=== PATIENT | female | born 1950 ===

== ENCOUNTER → 2018-06-03 | Day surgery (SDC) | payer OTHER | END | disposition home or self-care (01) | LOC: ADM 05-26 13:30 → AMB-ENDOS 06:40 | DX: K57.30 Diverticulosis of large intestine without perforation or abscess without bleeding (principal); K64.2 Third degree hemorrhoids; Z12.11 Encounter for screening for malignant neoplasm of colon ==

== ENCOUNTER → 2024-11-08 | Emergency (ER) | payer OTHER ==
[~2024-11-08] VITALS: Ht 165.1 cm; Wt 64.0 kg
[~2024-11-08] MED LIST: COZAAR25 MG PO; FARXIGA5 MG PO; NEURONTIN300 MG PO
[2024-11-08 11:40] LABS: HEMATOCRIT 45.4 % (36.0-45.00); HEMOGLOBIN 15.2 g/dL (12.0-15.00); MEAN CELL VOLUME 90.8 fL (80.00-100.00); MEAN CORPUSCULAR HEMOGLOBIN 30.4 pg (27.00-32.0); MEAN CORPUSCULAR HGB CONC 33.5 g/dl (32.0-36.0); PLATELET COUNT 325 K/uL (150-450); RED BLOOD COUNT 4.99 M/uL (4.00-6.00); RED CELL DISTRIBUTION WIDTH 13.6 % (11.5-14.5); URINE APPEARANCE Clear; URINE BILIRRUBIN Negative (NEGATIVE); URINE BLOOD Negative; URINE COLOR Yellow; URINE KETONE 15 (NEGATIVE); URINE LEUKOCYTE Negative; URINE NITRATE Negative; URINE PROTEIN Negative (NEGATIVE); URINE UROBILINOGEN 0.2 E.U./dl
[2024-11-08 11:43] LABS: URINE BACTERIA 8.5 uL (0.0-1933); URINE EPITHELIAL CELLS 9.8 uL (0.0-38.8); URINE WBC 15.5 uL (0.0-23.2)
[2024-11-08 12:18] LABS: URINE CAST 0.88 uL (0.0-1.40); URINE GLUCOSE 500 MG/DL (NEGATIVE); URINE RBC 1.3 uL (0.0-20.8)
[2024-11-08 12:28] LABS: CALCIUM 9.7 mg/dL (8.5-10.1); CREATININE SERUM 0.83 mg/dL (0.55-1.02); GFR 67.02; POTASSIUM 5.53 mEq/L (3.5-5.1)
== END | disposition home or self-care (01) ==
LOC: ER
PROVIDERS: General Practice
DX: R10.9 Unspecified abdominal pain (principal); N39.9 Disorder of urinary system, unspecified; E11.9 Type 2 diabetes mellitus without complications; Z88.5 Allergy status to narcotic agent

== ENCOUNTER 2024-11-11 10:23 | Inpatient (IN) | payer OTHER ==
[~2024-11-11] VITALS: Ht 152.4 cm; Wt 64.0 kg
--- NOTE | 2024-11-11 10:38 | NUR ---
PACIENTE ALERTA Y ORIENTADO X3.PACIENTE REFIERE QUE DESDE HACE MK SEMANA A TENIDO DOLOR DE DIVERTIGULITIS Y QUE EL DR. CHAO LE NOTIFICO QUE VINIERA PARA QUE LO LLAMARAN.S/V ESTABLE AL MOMENTO.PACIENTE EN ESPERA DE EVALUACION MEDICA.
[2024-11-11] MEDS ORDERED: MORPHINE SULFATE 2 MG/ML CARTRIDGE IV ONE (13:00)
[2024-11-11] MEDS ORDERED: 0.9 % SODIUM CHLORIDE 500 ML IV SCH (13:15)
[2024-11-11 13:43] LABS: HEMATOCRIT 44.4 % (36.0-45.00); HEMOGLOBIN 15.1 g/dL (12.0-15.00); MEAN CELL VOLUME 90.1 fL (80.00-100.00); MEAN CORPUSCULAR HEMOGLOBIN 30.6 pg (27.00-32.0); PLATELET COUNT 300 K/uL (150-450); RED BLOOD COUNT 4.93 M/uL (4.00-6.00); RED CELL DISTRIBUTION WIDTH 13.6 % (11.5-14.5)
--- NOTE | 2024-11-11 13:47 | NUR ---
SE EDUCA PACIENTE SOBRE EL [place] MEDICO Y ESTA REFIERE ENTENDER. PACIENTE CANALIZA Y SE ADMINISTRA MEDICAMENTOS JOSE ORDEN MEDICA. SE RINA MUESTRAS DE LABORATORIOS Y SE ENVIAN. SE ENTREGA ENVASE DE U/A. PENDIENTE A CT SCAN
[2024-11-11 13:59] LABS: CALCIUM 10.1 mg/dL (8.5-10.1); CREATININE SERUM 0.87 mg/dL (0.55-1.02); GFR 63.47; POTASSIUM 4.8 mEq/L (3.5-5.1)
[2024-11-11 14:35] LABS: URINE APPEARANCE Clear; URINE BILIRRUBIN Negative (NEGATIVE); URINE BLOOD Negative; URINE COLOR Yellow; URINE LEUKOCYTE Negative; URINE NITRATE Negative; URINE PROTEIN Negative (NEGATIVE); URINE UROBILINOGEN 0.2 E.U./dl
[2024-11-11 14:38] LABS: URINE BACTERIA 12.2 uL (0.0-1933); URINE EPITHELIAL CELLS 7.4 uL (0.0-38.8); URINE WBC 9.1 uL (0.0-23.2)
[2024-11-11 15:00] LABS: URINE GLUCOSE >=1000 MG/DL (NEGATIVE); URINE KETONE 40 (NEGATIVE)
[2024-11-11] MEDS ORDERED: PIPERACILLIN/TAZOBACTAM SODIUM 3.375 GM in 0.9 % SODIUM CHLORIDE 100 ML IV SCH (19:25)
[2024-11-11] MEDS ORDERED: PANTOPRAZOLE SODIUM 40 MG in 0.9 % SODIUM CHLORIDE 8 ML IV PUSH SCH (19:30)
[2024-11-11] MEDS ORDERED: 0.9 % SODIUM CHLORIDE 1,000 ML IV SCH (19:30)
[2024-11-11] MEDS ORDERED: MORPHINE SULFATE 2 MG/ML CARTRIDGE IV PRN (19:30)
[2024-11-11] MEDS ORDERED: ENALAPRILAT DIHYDRATE 1.25 MG/ML VIAL IV PRN (19:45)
[2024-11-11] MEDS ORDERED: DEXTROSE 50 % IN WATER 0.5 G/ML VIAL IV PRN (20:30)
[2024-11-11] MEDS ORDERED: INSULIN LISPRO 1,000 UNIT/10 ML UNITS SUBCUTANEO PRN (20:30)
[2024-11-11 21:20] VITALS: BP 130/75; O2SAT 95
[2024-11-12] MEDS ORDERED: PIPERACILLIN/TAZOBACTAM SODIUM 3.375 GM VIAL IV ONE (06:26)
[2024-11-12 07:20] VITALS: BP 128/72; O2SAT 98
[2024-11-12 15:30] VITALS: BP 136/88; O2SAT 97
[2024-11-12] MEDS ORDERED: DEXTROSE 50 % IN WATER 0.5 G/ML VIAL IV ONE (15:56)
[2024-11-12] MEDS ORDERED: LACTOBACILLUS ACIDOPHILUS 1 CAP CAP PO SCH (17:00)
[2024-11-12 17:41] VITALS: BP 140/82; O2SAT 100
[2024-11-13 00:27] VITALS: BP 119/77; O2SAT 97
[2024-11-13 06:30] LABS: HEMOGLOBIN 13.7 g/dL (12.0-15.00); MEAN CELL VOLUME 90.3 fL (80.00-100.00); MEAN CORPUSCULAR HEMOGLOBIN 30.9 pg (27.00-32.0); MEAN CORPUSCULAR HGB CONC 34.2 g/dl (32.0-36.0); PLATELET COUNT 270 K/uL (150-450); RED BLOOD COUNT 4.43 M/uL (4.00-6.00); RED CELL DISTRIBUTION WIDTH 13.2 % (11.5-14.5)
[2024-11-13 07:06] LABS: ALBUMIN 3.3 gm/dL (3.4-5.0); BILIRUBIN TOTAL 1.16 mg/dL (0.3-1.2); CALCIUM 9.1 mg/dL (8.5-10.1); CREATININE SERUM 0.92 mg/dL (0.55-1.02); GFR 59.51; GLOBULINA 2.6 G/DL (2.4-3.5); POTASSIUM 4.57 mEq/L (3.5-5.1); TOTAL PROTEIN 5.9 gm/dL (6.4-8.2)
[2024-11-13 08:11] VITALS: BP 157/79; O2SAT 98
[2024-11-13] MEDS ORDERED: LOSARTAN POTASSIUM 25 MG TABLET PO SCH (09:00)
[2024-11-13 11:50] VITALS: BP 135/78; O2SAT 96
[2024-11-13 17:03] VITALS: BP 125/79; O2SAT 98
[2024-11-14 00:58] VITALS: BP 119/56; O2SAT 96
[2024-11-14 08:00] VITALS: BP 109/71; O2SAT 96
[2024-11-14 14:18] LABS: ob POSITIVE (NEGATIVE)
[2024-11-14 16:00] VITALS: BP 121/71; O2SAT 97
[2024-11-15 00:43] VITALS: BP 113/72; O2SAT 98
[2024-11-15 08:03] VITALS: BP 124/76; O2SAT 96
[2024-11-15 16:00] VITALS: BP 113/64; O2SAT 96
[2024-11-16 01:14] VITALS: BP 131/66; O2SAT 100
[2024-11-16 08:00] VITALS: BP 115/56; O2SAT 97
[2024-11-16 16:00] VITALS: BP 122/72; O2SAT 97
[2024-11-17 00:42] VITALS: BP 115/66; O2SAT 96
[2024-11-17 06:05] LABS: HEMATOCRIT 36.8 % (36.0-45.00); HEMOGLOBIN 12.3 g/dL (12.0-15.00); MEAN CORPUSCULAR HEMOGLOBIN 30.2 pg (27.00-32.0); MEAN CORPUSCULAR HGB CONC 33.5 g/dl (32.0-36.0); PLATELET COUNT 226 K/uL (150-450); RED BLOOD COUNT 4.09 M/uL (4.00-6.00); RED CELL DISTRIBUTION WIDTH 13.3 % (11.5-14.5)
[2024-11-17 06:39] LABS: CALCIUM 8.8 mg/dL (8.5-10.1); CREATININE SERUM 1.05 mg/dL (0.55-1.02); GFR 51.09; POTASSIUM 4.1 mEq/L (3.5-5.1)
[2024-11-17 08:00] VITALS: BP 136/84; O2SAT 96
[2024-11-17 16:00] VITALS: BP 126/63; O2SAT 97
[2024-11-18 00:53] VITALS: BP 109/55; O2SAT 99
[2024-11-18 08:00] VITALS: BP 135/81; O2SAT 97
[2024-11-18 16:00] VITALS: BP 133/84; O2SAT 98
== END 2024-11-18 18:48 | disposition home or self-care (01) | DRG 392 ==
LOC: ER 10:23 → MEDJ 19:29 → SURH 19:29 → SEC-K 21:27 → MEDJ 11-12 14:40 → SEC-K 11-12 15:26 → SURG 11-12 15:32 → SURH 11-12 15:55
PROVIDERS: Emergency Medicine; Internal Medicine; ADMIT Internal Medicine; ATTEND Internal Medicine
PROC: BW20YZZ Computerized Tomography (CT Scan) of Abdomen using Other Contrast (ICD-10-PCS; principal; 2024-11-11)
DX: K57.32 Diverticulitis of large intestine without perforation or abscess without bleeding (principal); K90.49 Malabsorption due to intolerance, not elsewhere classified; I10 Essential (primary) hypertension; Z88.6 Allergy status to analgesic agent